=== PATIENT | female | born 1960 | race Caucasian/White ===

== ENCOUNTER → 2018-03-14 | Outpatient (CLI) | payer OTHER ==
[~2018-03-14] MED LIST: ALBUTEROL SULFATE 0.083% NEB 2.5 MG/3 ML AMPUL NEB ONE
--- NOTE | 2018-03-18 13:13 | Pulmonary Function Test ---
Pulmonary Function Test Date of Procedure:: 03/14/18 INDICATION:: COPD/small cell lung cancer Referring Provider: Dr. Umang Momin Hand Bootmaker: Razia White, PULP MIXER, AGGREGATE CONVEYOR OPERATOR - Report Spirometry: FVC 3.06 L 110% FEV1 1.98 L 87% FEV1/FVC % 65 predicted 83 FEF 25-75% 1.06 L 43% Diffusion Capactity: Diffusion capacity 16.9 84% DLCO/VA 4.66 119% Impression: Mild obstructive ventilatory defect normal diffusion capacity
== END ==
LOC: RT 13:07
PROVIDERS: ATTEND Preventive Medicine Public Health & General Preventive Medicine
DX: J44.9 Chronic obstructive pulmonary disease, unspecified (principal); C34.90 Malignant neoplasm of unspecified part of unspecified bronchus or lung
CPT/HCPCS: 94010; 94729